=== PATIENT | male | born 1955 | race Caucasian/White ===

== ENCOUNTER → 2016-12-05 | Outpatient (CLI) | payer BC ==
[~2016-12-05] MED LIST: CELEXA10 MG PO; CEPHALEXIN500 M1 PO; ESZOPICOLONE; LORTAB 5/500 501 TAB PO; LORTAB PO; LOTENSIN 1010 MG/TAB PO; NORCO 325 MG-51 TAB PO; NORVASC 5MG5 MG/TAB PO; OXYCONTIN30 MG PO; PRINZIDE 25 MG-1 TAB PO; REMERON SOLTAB15 MG
== END ==
LOC: ZCOL.LAB 18:37
DX: I10 Essential (primary) hypertension (principal); R06.00 Dyspnea, unspecified; R53.83 Other fatigue

== ENCOUNTER 2017-02-20 10:37 | Emergency (ER) | payer BC ==
[~2017-02-20] VITALS: Ht 180.3 cm; Wt 104.5 kg
[~2017-02-20 10:37] MED LIST changes: -REMERON SOLTAB15 MG; +REMERON SOLTAB15 MG PO
[2017-02-20 10:42] VITALS: TEMP 98.7
[2017-02-20] MEDS ORDERED: DAZIDOX10 MG PO ×2 (12:43→12:44)
[2017-02-20 13:20] VITALS: BP 131/73; PULSE 54
== END 2017-02-20 13:21 | disposition home or self-care (01) ==
LOC: COL.ER 10:37
DX: S82.201A Unspecified fracture of shaft of right tibia, initial encounter for closed fracture (principal); Z96.661 Presence of right artificial ankle joint; Z98.890 Other specified postprocedural states; X50.0XXA Overexertion from strenuous movement or load, initial encounter
CPT/HCPCS: J1170; J2060

== ENCOUNTER → 2018-08-03 | Outpatient (CLI) | payer BC ==
[~2018-08-03] MED LIST changes: +DAZIDOX10 MG PO
== END ==
LOC: COL.VAS 11:02
DX: R06.02 Shortness of breath (principal)

== ENCOUNTER 2018-11-09 18:20 | Inpatient (IN) | payer BC ==
[2018-11-09] VITALS (108 sets, daily range): BP systolic 137; BP diastolic 65; PULSE 63; TEMP 98; O2SAT 91–99
[~2018-11-09] VITALS: Ht 180.3 cm; Wt 105.6 kg
[2018-11-09 18:45] LABS: BASO # 0.1 (0.0-0.2); BASO % 0.7 % (0.0-2.0); EOS # 0.4 (0.0-0.7); EOS % 5.7 % (0-4.0); GRAN # 3.1 (1.4-6.5); GRAN % 42.6 % (42.2-75.2); HEMATOCRIT 42.2 % (42.0-52.0); HEMOGLOBIN 13.8 g/dl (13.5-18.0); LYMPH # 2.9 (1.2-3.4); MEAN CELL VOLUME 88 fl (80.0-100.0); MEAN CORPUSCULAR HEMOGLOBIN 29 pg (27.0-31.0); MEAN CORPUSCULAR HGB CONC 33 g/dl (33.0-37.0); MONO # 0.8 (0.1-0.6); MONO % 10.7 % (1.7-9.3); PLATELET COUNT 290 K/mm3 (130-400); RED BLOOD COUNT 4.82 M/mm3 (4.20-5.60); REDCELL DISTRIBUTION WIDTH-CV 12.7 % (11.5-14.5)
[2018-11-09 18:54] LABS: INR 0.9 (0.8-3.0); PROTHROMBIN TIME 10.2 SECONDS (9.7-12.8)
[2018-11-09 18:55] LABS: ALANINE AMINOTRANSFERASE < 6 U/L (21-72); ALBUMIN 4.6 gm/dL (3.5-5.0); ALKALINE PHOSPHATASE 120 U/L (50-136); ANION GAP 13 mmol/L (7-16); AST,SGOT 23 U/L (15-37); BILIRUBIN,TOTAL 0.4 mg/dL (0.0-1.0); BLOOD UREA NITROGEN 16 mg/dL (9-20); CALCIUM 9.3 mg/dL (8.4-10.2); CARBON DIOXIDE 25 mmol/L (22-30); CHLORIDE 104 mmol/L (98-107); CREATININE, serum 0.98 (0.66-1.25); GLUCOSE 94 mg/dL (74-106); POTASSIUM 3.2 mmol/L (3.4-5.0); SODIUM 142 mmol/L (137-145); TOTAL PROTEIN 7.8 gm/dL (6.4-8.2)
[2018-11-09 19:10] LABS: TROPONIN-I < 0.012 ng/mL (0.000-0.035)
[2018-11-09] MEDS ORDERED: NEURONTIN300 MG/CAP PO (19:40)
[2018-11-09] MEDS ORDERED: ZOLOFT 100MG100 MG PO (19:41)
[2018-11-09] MEDS ORDERED: VITAMIN D 50,1.25 MG PO (19:42)
[2018-11-09] MEDS ORDERED: FLOMAX 0.40.4 MG/CAP PO (19:42)
[2018-11-09] MEDS ORDERED: LASIX 40MG TABL40 MG PO (19:43)
[2018-11-09] MEDS ORDERED: COZAAR100 MG PO (19:44)
[2018-11-09] MEDS ORDERED: ADDERALL10 MG PO (19:44)
[2018-11-09] MEDS ORDERED: OXYCONTIN60 MG PO (19:45)
[2018-11-09] MEDS ORDERED: CIALIS2.5 MG PO (19:46)
--- NOTE | 2018-11-09 21:48 | NUR ---
JOSE Wong calls report at this time. Patient will be brought to unit shortly.
--- NOTE | 2018-11-09 22:02 | NUR ---
Patient arrives at this time via ED cart. Patient sits self up to side of bed with some assistance. Does have complaints of slight dizziness. Sat at side of bed for a few mins, then patient transfers self to unit bed. Attached patient to unit monitoring equipment and assessment completed. Assessment reveals clear lung sounds in all braun with slightly diminished bases. HR and rhythm regular, normal S1 and S2 heard. Bowel sounds active x4. Patient has no current complaints of pain. He is alert and oriented x4. Follows commands. Patient does have multiple scrapes and scabs to his right leg, all scabs are intact, no bleeding noted, no pain. Oriented patient to room and unit. Explained and demonstrated call light. Patient confirms understanding. No further needs at this time. Will continue to monitor. Call light within reach.
[2018-11-10] VITALS (643 sets, daily range): BP systolic 104–151; BP diastolic 52–86; PULSE 60–73; TEMP 97.8–98.7; O2SAT 87–100
--- NOTE | 2018-11-10 04:00 | NUR ---
Patient awake upon entrance into the room. Patient states he is having no pain. No signs of distress. He is alert and oriented. Vitals have remained stable. No current needs at this time. Will continue to monitor. Call light within reach.
[2018-11-10 05:46] LABS: BASO % 0.6 % (0.0-2.0); EOS # 0.2 (0.0-0.7); EOS % 3.7 % (0-4.0); GRAN # 3.2 (1.4-6.5); GRAN % 58.6 % (42.2-75.2); HEMATOCRIT 39.2 % (42.0-52.0); HEMOGLOBIN 12.6 g/dl (13.5-18.0); LYMPH # 1.4 (1.2-3.4); LYMPH % 26.6 % (20.0-51.0); MEAN CELL VOLUME 90 fl (80.0-100.0); MEAN CORPUSCULAR HEMOGLOBIN 29 pg (27.0-31.0); MEAN CORPUSCULAR HGB CONC 32 g/dl (33.0-37.0); MEAN PLATELET VOLUME 9.4 fl (7.4-10.4); MONO # 0.5 (0.1-0.6); MONO % 10.1 % (1.7-9.3); PLATELET COUNT 203 K/mm3 (130-400); RED BLOOD COUNT 4.38 M/mm3 (4.20-5.60); REDCELL DISTRIBUTION WIDTH-CV 12.6 % (11.5-14.5)
[2018-11-10 05:57] LABS: ANION GAP 6 mmol/L (7-16); BLOOD UREA NITROGEN 14 mg/dL (9-20); CALCIUM 8.5 mg/dL (8.4-10.2); CARBON DIOXIDE 26 mmol/L (22-30); CHLORIDE 111 mmol/L (98-107); CREATININE, serum 0.86 (0.66-1.25); GLUCOSE 96 mg/dL (74-106); MAGNESIUM 2.2 mg/dL (1.6-2.3); POTASSIUM 4.5 mmol/L (3.4-5.0); SODIUM 142 mmol/L (137-145)
[2018-11-10 05:58] LABS: INR 0.9 (0.8-3.0); PROTHROMBIN TIME 10.6 SECONDS (9.7-12.8)
[2018-11-10 06:12] LABS: TROPONIN-I < 0.012 ng/mL (0.000-0.035)
--- NOTE | 2018-11-10 07:10 | NUR ---
Report received from Stephy GARCIA and care resumed.
--- NOTE | 2018-11-10 07:20 | NUR ---
Bedside report given to JOSE Tang.
--- NOTE | 2018-11-10 08:50 | NUR ---
Dr Harris in to see pt at this time.
--- NOTE | 2018-11-10 10:54 | NUR ---
was with the patient. I visited, provided spiritual care, and prayed with the patient and his .
--- NOTE | 2018-11-10 11:00 | NUR ---
Dr Angela in to see pt at this time.
--- NOTE | 2018-11-10 14:58 | NUR ---
Report called to Magda GARCIA on surgical floor. Pt to transfer to room 348 with tele.
--- NOTE | 2018-11-10 16:20 | NUR ---
Pt was transfered to room 348 from ICU. He is awake and A/Ox4. He denies pain or discomfort. He is ambulating around room and hallways without difficulty. He is NSB on tele, HR 57. Saline locks to right AC and left wrist are free of complications. Pt oriented to room and to staff, expressed understanding. Denies any other needs. Will monitor.
--- NOTE | 2018-11-10 20:30 | NUR ---
Shift assessment complete. Patient walking around room, standing at bedside. Denies pain. States, he would like his sleeping medication. Per eMAR, remeron was placed on hold 11/09. Will notify Dr. Andrew to possibly get medication restarted. Patient updated. Denies further needs at this time. Will continue to monitor.
[2018-11-11] VITALS (7 sets, daily range): BP systolic 128–1159; BP diastolic 59–97; PULSE 64–70; TEMP 97.9–98.4
--- NOTE | 2018-11-11 09:36 | NUR ---
EARL met with the patient to discuss a discharge plan. The pt lives alone in [place]. The pt does not use DME and reports independence with ADLs and reports independence with ADLs. The pt's PCP is Dr. Winslow and pt receives medications from [facility] with no difficulties. The pt does not have advanced directives in the EMR but reports they are completed and designate Coleen Sharma. The pt plans to return home upon discharge and he will drive himself home. There are no additional needs at this time.
--- NOTE | 2018-11-11 14:50 | NUR ---
Alert. Denies dizziness. No weakness. Orthostatic blood pressures stable. Dr. Harris talked with patient. Holter monitor applied by RT. Discharge instructions given. Dismissed to home per w/c.
== END 2018-11-11 14:50 | disposition home or self-care (01) | DRG 316 ==
LOC: COL.ER 18:20 → ICU 20:24 → SURG 11-10 15:57
PROVIDERS: Emergency Medicine; ADMIT Internal Medicine
DX: I95.9 Hypotension, unspecified (principal); G89.29 Other chronic pain; M25.571 Pain in right ankle and joints of right foot; E87.6 Hypokalemia; I10 Essential (primary) hypertension; M54.9 Dorsalgia, unspecified; R41.82 Altered mental status, unspecified; R53.81 Other malaise; R41.3 Other amnesia
CPT/HCPCS: OP; 99223-AI; 99232-AI; 99239; J1650; J2060; J2405; J7030; Q9967

== ENCOUNTER 2018-12-09 19:58 | Emergency (ER) | payer BC ==
[~2018-12-09] VITALS: Ht 180.3 cm; Wt 105.0 kg
[~2018-12-09 19:58] MED LIST changes: +ADDERALL10 MG PO; +CIALIS2.5 MG PO; +COZAAR100 MG PO; +FLOMAX 0.40.4 MG/CAP PO; +LASIX 40MG TABL40 MG PO; +NEURONTIN300 MG/CAP PO; +OXYCONTIN60 MG PO; +VITAMIN D 50,1.25 MG PO; +ZOLOFT 100MG100 MG PO
[2018-12-09 20:02] VITALS: TEMP 98.4
[2018-12-09 20:30] LABS: BASO % 0.2 % (0.0-2.0); EOS # 0.1 (0.0-0.7); EOS % 1.5 % (0-4.0); GRAN # 6.5 (1.4-6.5); GRAN % 71.3 % (42.2-75.2); HEMATOCRIT 38.7 % (42.0-52.0); HEMOGLOBIN 12.5 g/dl (13.5-18.0); LYMPH # 1.3 (1.2-3.4); LYMPH % 14.1 % (20.0-51.0); MEAN CELL VOLUME 89 fl (80.0-100.0); MEAN CORPUSCULAR HEMOGLOBIN 29 pg (27.0-31.0); MEAN CORPUSCULAR HGB CONC 32 g/dl (33.0-37.0); MEAN PLATELET VOLUME 9.3 fl (7.4-10.4); MONO # 1.2 (0.1-0.6); MONO % 12.6 % (1.7-9.3); PLATELET COUNT 246 K/mm3 (130-400); RED BLOOD COUNT 4.34 M/mm3 (4.20-5.60); REDCELL DISTRIBUTION WIDTH-CV 13.1 % (11.5-14.5)
[2018-12-09 20:38] LABS: MAGNESIUM 2.3 mg/dL (1.6-2.3); PHOSPHOROUS 5.8 mg/dL (2.5-4.5)
[2018-12-09 20:45] LABS: ALANINE AMINOTRANSFERASE 14 U/L (21-72); ALBUMIN 4.2 gm/dL (3.5-5.0); ALKALINE PHOSPHATASE 105 U/L (50-136); ANION GAP 14 mmol/L (7-16); AST,SGOT 34 U/L (15-37); BILIRUBIN,TOTAL 0.9 mg/dL (0.0-1.0); BLOOD UREA NITROGEN 47 mg/dL (9-20); C-REACTIVE PROTEIN 4.6 mg/dL (0.0-0.9); CALCIUM 8.5 mg/dL (8.4-10.2); CARBON DIOXIDE 25 mmol/L (22-30); CHLORIDE 97 mmol/L (98-107); GLUCOSE 115 mg/dL (74-106); SODIUM 136 mmol/L (137-145); TOTAL PROTEIN 7.5 gm/dL (6.4-8.2)
[2018-12-09 20:48] LABS: ALCOHOL(ethanol),MEDICAL < 10 mg/dL; CREATININE, serum 5.51 (0.66-1.25)
[2018-12-09 20:54] LABS: TROPONIN-I < 0.012 ng/mL (0.000-0.035)
[2018-12-10 00:20] VITALS: BP 110/50; PULSE 65
== END 2018-12-10 00:20 | disposition short-term general hospital (02) ==
LOC: COL.ER 19:58 → ICU 22:07 → COL.ER 12-10 00:20
PROVIDERS: Emergency Medicine
DX: N17.9 Acute kidney failure, unspecified (principal); I10 Essential (primary) hypertension
CPT/HCPCS: J7030

== ENCOUNTER 2019-05-22 08:17 | Emergency (ER) | payer BC ==
[~2019-05-22] VITALS: Ht 180.3 cm; Wt 109.1 kg
[2019-05-22 08:22] VITALS: TEMP 98.2
[2019-05-22] MEDS ORDERED: CEPHALEXIN500 M1 PO (08:51)
[2019-05-22 09:25] VITALS: BP 126/75; PULSE 70
== END 2019-05-22 09:25 | disposition home or self-care (01) ==
LOC: COL.ER 08:17
DX: S61.411A Laceration without foreign body of right hand, initial encounter (principal); I10 Essential (primary) hypertension; G35 Multiple sclerosis; Z23 Encounter for immunization; W19.XXXA Unspecified fall, initial encounter; W26.8XXA Contact with other sharp object(s), not elsewhere classified, initial encounter; Y92.59 Other trade areas as the place of occurrence of the external cause

== ENCOUNTER 2020-04-03 13:58 | Outpatient (CLI) | payer MEDICARE, BC ==
[~2020-04-03] VITALS: Ht 180.3 cm; Wt 105.0 kg
[2020-04-03 14:34] VITALS: BP 127/66; PULSE 61; TEMP 98.3
[2020-04-03] MEDS ORDERED: MS CONTIN 660 MG/TAB PO (14:56)
[2020-04-03 15:05] VITALS: BP 129/70; PULSE 57; TEMP 98.4
[2020-04-03] MEDS ORDERED: NORVASC 5MG5 MG/TAB PO (15:11)
[2020-04-03] MEDS ORDERED: LASIX 20MG TABL20 MG PO (15:12)
[2020-04-03 15:30] VITALS: BP 141/72; PULSE 54
[2020-04-03 16:00] VITALS: BP 134/70; PULSE 62; TEMP 97.1
[2020-04-03 16:30] VITALS: BP 142/74; PULSE 75
[2020-04-03 16:44] VITALS: BP 143/71; PULSE 58
--- NOTE | 2020-04-03 17:00 | NUR ---
Pt tolerates infusion without issue. He ambulates from dept under own power at time of discharge.
== END 2020-04-03 17:00 | disposition home or self-care (01) ==
LOC: EUO 13:58
DX: U07.1 COVID-19 (principal)
CPT/HCPCS: J7050

== ENCOUNTER 2020-04-13 08:33 | Emergency (ER) | payer MEDICARE, BC ==
[~2020-04-13] VITALS: Ht 180.3 cm; Wt 107.7 kg
[~2020-04-13 08:33] MED LIST changes: +LASIX 20MG TABL20 MG PO; +MS CONTIN 660 MG/TAB PO
[2020-04-13 09:41] LABS: BASO % 0.3 % (0.0-2.0); EOS # 0.1 (0.0-0.7); EOS % 0.5 % (0-4.0); GRAN % 80.9 % (42.2-75.2); HEMATOCRIT 44.4 % (42.0-52.0); HEMOGLOBIN 14.1 g/dl (13.5-18.0); LYMPH # 0.8 (1.2-3.4); LYMPH % 7.7 % (20.0-51.0); MEAN CELL VOLUME 90 fl (80.0-100.0); MEAN CORPUSCULAR HEMOGLOBIN 29 pg (27.0-31.0); MEAN CORPUSCULAR HGB CONC 32 g/dl (33.0-37.0); MEAN PLATELET VOLUME 9.6 fl (7.4-10.4); MONO % 10.3 % (1.7-9.3); PLATELET COUNT 224 K/mm3 (130-400); RED BLOOD COUNT 4.93 M/mm3 (4.20-5.60); REDCELL DISTRIBUTION WIDTH-CV 12.7 % (11.5-14.5)
[2020-04-13 09:51] LABS: ALANINE AMINOTRANSFERASE 11 U/L (4-49); ALBUMIN 3.7 gm/dL (3.5-5.0); ALKALINE PHOSPHATASE 80 U/L (50-136); ANION GAP 6 mmol/L (7-16); AST,SGOT 23 U/L (15-37); BLOOD UREA NITROGEN 12 mg/dL (9-20); CALCIUM 8.7 mg/dL (8.4-10.2); CARBON DIOXIDE 28 mmol/L (22-30); CHLORIDE 104 mmol/L (98-107); CREATINE KINASE 95 U/L (55-170); CREATININE, serum 1.06 (0.66-1.25); GLUCOSE 116 mg/dL (74-106); POTASSIUM 4.2 mmol/L (3.4-5.0); SODIUM 138 mmol/L (137-145); TOTAL PROTEIN 6.8 gm/dL (6.4-8.2)
[2020-04-13 10:02] LABS: TROPONIN-I < 0.012 ng/mL (0.000-0.035)
[2020-04-13 11:23] VITALS: TEMP 99.5
[2020-04-13 12:16] LABS: COLLECTION METHOD CLEAN CATCH
[2020-04-13 12:30] LABS: MUCOUS Present /lpf; PH 5 (5-8); SQUAMOUS EPITHELIAL 0-2 /hpf; URINE APPEARANCE Hazy; URINE BACTERIA None Seen /hpf; URINE BILIRUBIN Negative (NEGATIVE); URINE BLOOD Negative (NEGATIVE); URINE COLOR Yellow; URINE GLUCOSE Negative (NEGATIVE); URINE KETONE Negative (NEGATIVE); URINE LEUKOCYTE ESTERASE Negative (NEGATIVE); URINE NITRATE Negative (NEGATIVE); URINE PROTEIN(semi-quant) Negative (NEGATIVE); URINE RBC 0-2 /hpf; URINE UROBILINOGEN Negative (NEGATIVE)
[2020-04-13 16:00] VITALS: BP 129/64; PULSE 54
== END 2020-04-13 16:00 | disposition home or self-care (01) ==
LOC: COL.ER 08:33
PROVIDERS: Emergency Medicine
DX: U07.1 COVID-19 (principal); G35 Multiple sclerosis; Z87.891 Personal history of nicotine dependence
CPT/HCPCS: J2543; J7040; Q9967

== ENCOUNTER 2021-03-22 07:27 | Day surgery (SDC) | payer MEDICARE, BC ==
[2021-03-22] VITALS (9 sets, daily range): BP systolic 102–144; BP diastolic 62–98; PULSE 52–82; TEMP 98.4
[~2021-03-22] VITALS: Ht 180.3 cm; Wt 95.6 kg
[2021-03-22] MEDS ORDERED: IRON TABLETS325 MG PO (08:42)
[2021-03-22] MEDS ORDERED: PROSCAR 5MG5 MG PO (08:43)
[2021-03-22] MEDS ORDERED: SINGULAIR 110 MG/TAB PO (08:44)
[2021-03-22] MEDS ORDERED: REMERON30 MG PO (08:44)
[2021-03-22] MEDS ORDERED: PRAVACHOL 20MG20 MG PO (08:45)
[2021-03-22] MEDS ORDERED: LAMISIL250 M1 (08:45)
[2021-03-22] MEDS ORDERED: LOTREL 5/10MG C1 CAP PO (08:46)
[2021-03-22] MEDS ORDERED: ASPIRIN E.C. 8181 MG PO (08:47)
[2021-03-22 08:54] LABS: CREATININE, serum 0.87 mg/dL (0.72-1.25); POTASSIUM 4.3 mmol/L (3.5-4.5)
[2021-03-22 08:55] LABS: HEMATOCRIT 42.5 % (42.0-52.0); HEMOGLOBIN 13.9 g/dl (13.5-18.0); MEAN CELL VOLUME 89 fl (80.0-100.0); MEAN CORPUSCULAR HEMOGLOBIN 29 pg (27-31); MEAN CORPUSCULAR HGB CONC 33 g/dl (33.0-37.0); MEAN PLATELET VOLUME 9.1 fl (7.4-10.4); PLATELET COUNT 246 K/mm3 (130-400); RED BLOOD COUNT 4.77 M/mm3 (4.20-5.60); REDCELL DISTRIBUTION WIDTH-CV 13.1 % (11.5-14.5)
[2021-03-22 09:03] LABS: PROTHROMBIN TIME 11.6 SECONDS (9.7-12.8)
[2021-03-22 09:06] LABS: PARTIAL THROMBOPLASTIN TIME 28.8 SECONDS (26.0-37.0)
--- NOTE | 2021-03-22 09:35 | NUR ---
SEE MERGE FOR ALL MEDICATION ADMINISTRATION TIMES, INTRA AND POST SEDATION ASSESSMENTS
--- NOTE | 2021-03-22 10:15 | NUR ---
PT RETURNED TO EU 12 VIA BED FROM PANEL ASSEMBLER, PT IS AWAKE AND ALERT, IN ROOM, DR HANDLEY ALSO CAME BY TO TALK WITH . REVIEWED INST. TO PT ON RADAIL BAND. REQUESTS TO LAY ON LEFT SIDE FLAT WHICH HELPS WITH CHRONIC BACK PAIN. MONITOR SHOWINWG SINUS HEATHER. CALL LIGHT IN REACH.
--- NOTE | 2021-03-22 10:45 | NUR ---
PT CON'T TO REST ON LEFT SIDE, STATES HAVING NO PAIN OR SOB, MONITOR SHOWING PVC COUPLETS OCCASIONAL, RATE IN 50'S, PT ON TELEMETRY, DECLINES DRINK OR SNACK
--- NOTE | 2021-03-22 11:30 | NUR ---
CON'T SAME, NO C/O, PT GOES IN AND OUT OF SINUS HEATHER AND PVC COUPLING
--- NOTE | 2021-03-22 12:15 | NUR ---
STARTING AIR RELEASE FROM RADIAL BAND, 2CC EVERY 5-10 MIN. WITH NO BLEEDING OR SWELLING WITH BAND RELEASE. BANDAID OVER SITE WITH COBAN ON FOR SUPPORT.
--- NOTE | 2021-03-22 12:45 | NUR ---
PT SAT ON SIDE OF BED, TELE READING SINUS HEATHER. GI CALLED ON TELE READINGS, STATED PT HAD HOME MONITOR ON FOR THAT AND RESULTS HAVE NOT COME IN, PT HAS NEXT APPT. PT WALKED TO B/R VOIDED, REVIEWED DISCHARGE INST. WITH PT ON ACTIVITY, MODERATE SEDATION PRECAUTIONS, CARE OF SITE, NEXT APPT AND MED LIST WITH VERBAL UNDERSTANDING.
--- NOTE | 2021-03-22 13:00 | NUR ---
IV D'CD INTACT, PT DRESSED, DISCHARGED VIA W/C TO CAR WITH .
== END 2021-03-22 13:00 | disposition home or self-care (01) ==
LOC: COL.CAR 07:27
PROVIDERS: Internal Medicine Cardiovascular Disease
DX: R06.02 Shortness of breath (principal); R06.00 Dyspnea, unspecified; R94.39 Abnormal result of other cardiovascular function study; I65.23 Occlusion and stenosis of bilateral carotid arteries; I10 Essential (primary) hypertension; N40.0 Benign prostatic hyperplasia without lower urinary tract symptoms; E66.3 Overweight; G35 Multiple sclerosis; R53.83 Other fatigue; G62.9 Polyneuropathy, unspecified; I49.3 Ventricular premature depolarization; Z87.891 Personal history of nicotine dependence; Z79.899 Other long term (current) drug therapy; Z91.81 History of falling; Z79.82 Long term (current) use of aspirin
CPT/HCPCS: J1644; J2250; J3010

== ENCOUNTER 2023-11-28 16:22 | Emergency (ER) | payer MEDICARE, BC ==
[~2023-11-28] VITALS: Ht 177.8 cm; Wt 92.7 kg
[~2023-11-28 16:22] MED LIST changes: +ASPIRIN E.C. 8181 MG PO; +IRON TABLETS325 MG PO; +LAMISIL250 M1; +LOTREL 5/10MG C1 CAP PO; +PRAVACHOL 20MG20 MG PO; +PROSCAR 5MG5 MG PO; +REMERON30 MG PO; +SINGULAIR 110 MG/TAB PO
[2023-11-28 16:36] VITALS: BP 118/68; PULSE 55; TEMP 98
[2023-11-28] MEDS ORDERED: CEPHALEXIN500 M1 PO (17:22)
== END 2023-11-28 18:05 | disposition home or self-care (01) ==
LOC: COL.ER 16:22
DX: S61.412A Laceration without foreign body of left hand, initial encounter (principal); W29.0XXA Contact with powered kitchen appliance, initial encounter